=== PATIENT | female | born 1965 | race Caucasian/White ===

== ENCOUNTER → 2020-12-25 | Outpatient (CLI) | payer BC ==
[2020-12-25 08:52] LABS: HEMOGLOBIN 14.7 gm/dl (12.3-15.3); RED BLOOD COUNT 4.81 M/UL (4.00-5.10); WHITE BLOOD COUNT 4.7 K/UL (4.5-11.0)
[2020-12-25 09:13] LABS: BUN/CREATININE RATIO 20 (0-10)
[2020-12-26 08:13] LABS: RHEUMATOID ARTHRITIS FACTOR <10.0 IU/mL (0.0-13.9); TRIIODOTHYRONINE (T3) 150 ng/dL (71-180); VITAMIN D, 25-HYDROXY 21.9 ng/mL (30.0-100.0)
== END ==
LOC: LAB 08:03
PROVIDERS: Nurse Practitioner
DX: J30.2 Other seasonal allergic rhinitis (principal); H92.03 Otalgia, bilateral; J30.9 Allergic rhinitis, unspecified; E78.5 Hyperlipidemia, unspecified; R53.83 Other fatigue; M25.50 Pain in unspecified joint; E55.9 Vitamin D deficiency, unspecified
CPT/HCPCS: 36415; 80053; 80061; 84436; 84443; 84480; 85025; 85652; 86038; 86140; 86431